=== PATIENT | female | born 1985 | race Caucasian/White ===

== ENCOUNTER 2024-10-02 19:49 | Emergency (ER) | payer MEDICAID, SELFPAY ==
[2024-10-02 19:49] VITALS: BMI 27.3
[2024-10-02 20:24] VITALS: BP 125/86; PULSE 81; RESP 18; TEMP 36.7; O2SAT 99
--- NOTE | 2024-10-02 20:34 | XR_ITS ---
Examination: Right elbow 3 views Technique: Elbow AP, oblique, lateral 3 views Exam date and time: October 02, [id number] hrs. Indications: Patient fell today with injury to the elbow, elbow pain. Findings: No acute fracture No dislocation No foreign body Impression: No acute fracture.
--- NOTE | 2024-10-02 20:34 | PD.EDUPEX ---
Upper Extremity Injury RME/HPI General Chief Complaint: Extremity Injury, Upper Stated Complaint: RIGHT ELBOW INJURY Time Seen by Provider: 10/02/24 20:34 Source: patient Arrival date/time: 10/02/24 19:49 39-year-old female presents emergency department complaining of right elbow pain after suffering fall from 2 steps above the ground with no LOC or injury to head or neck area. Mode of arrival: ambulatory Limitations: no limitations Related Data Previous Rx's ?Medication ?Instructions ?Recorded hydrocodone 5 mg-acetaminophen 300 1 tab PO Q8H PRN pain #30 tabs 07/25/20 mg tablet ibuprofen 100 mg tablet 400 mg (4 x 100 mg) PO Q6H PRN 07/25/20 pain #90 tabs ibuprofen 600 mg tablet 600 mg PO Q8H PRN pain #20 tabs 10/02/24 Allergies Allergy/AdvReac Type Severity Reaction Status Date / Time No Known Allergies Allergy Verified 07/25/20 10:13 Review of Systems Review of Systems Systems Reviewed: All systems reviewed, normal except as documented Constitutional Constitutional: Reports system reviewed and no additional complaints, except as documented, Denies body ache(s), Denies chills and Denies fever(s) Eyes Eyes: Reports system reviewed and no additional complaints, except as documented and Denies change in vision ENT Ears, Nose, Mouth, and Throat: Reports system reviewed and no additional complaints, except as documented, Denies disequilibrium, Denies dizziness, Denies sore throat and Denies vertigo Cardiovascular Cardiovascular: Reports system reviewed and no additional complaints, except as documented, Denies chest pain and Denies dyspnea Respiratory Respiratory: Reports system reviewed and no additional complaints, except as documented, Denies chest congestion, Denies cough and Denies dyspnea Gastrointestinal Gastrointestinal: Reports system reviewed and no additional complaints, except as documented, Denies abdominal pain, Denies nausea and Denies vomiting Musculoskeletal Musculoskeletal: Reports system reviewed and no additional complaints, except as documented, Denies abnormal gait and Reports arthralgias Integumentary/Breasts Skin/Breast: Reports system reviewed and no additional complaints, except as documented, Denies erythema, Denies rash and Denies wounds Neurologic Neurologic: Reports system reviewed and no additional complaints, except as documented, Denies abnormal gait, Denies disequilibrium, Denies dizziness and Denies vertigo Past Medical History Past Medical History NEUROLOGIC: Negative Neurological Disorders or Seizures CARDIAC: Negative Cardiac Disorders or Congestive Heart Failure RESPIRATORY: Negative Chronic Obstructive Pulmonary Disease (COPD) GASTROINTESTINAL: Negative Gastrointestinal Disorders or Hepatitis GENITOURINARY: Negative Genitourinary Disorders or Renal Disease REPRODUCTIVE: Positive Previous Pregnancies (X5) MUSCULOSKELETAL: Negative Musculoskeletal Disorders ENDOCRINE: Negative Endocrine Disorders, Diabetes Mellitus Type 1 or Diabetes Mellitus Type 2 HEMATOLOGIC: Negative Blood Disorders OTHER HISTORY: Positive Chicken Pox; Negative Autoimmune Disease, Falls, Blood Transfusions, Blood Transfusion Reaction, Anesthesia Reactions, MRSA or Cancer Family History FAMILY HISTORY: Negative Family Psychiatric Problems, Family Respiratory Disorders, Family Cardiac Disorders, Family Gastrointestinal Problems, Family Cancer, Family Surgery or Family Anesthesia Reaction Surgical History SURGICAL: Positive Open Reduction Internal Fixation (RIGHT ANKLE- HAS 1 SCREW); Negative Neurologic Surgery Social History SMOKING STATUS: Current every day smoker ED Exam General Limitations: Present no limitations General appearance: Present alert and in no apparent distress Head Head exam: Present atraumatic Eye Eye exam: Present normal appearance, PERRL and EOMI ENT ENT exam: Present normal exam, normal oropharynx and mucous membranes moist Neck Neck exam: Present normal inspection, full ROM and trachea midline Chest Chest inspection: Present normal inspection and symmetric chest wall rise Respiratory Respiratory exam: Present normal lung sounds bilaterally Cardiovascular Cardiovascular exam: Present regular rate, normal rhythm and normal heart sounds Abdominal Exam Abdominal exam: Present soft and normal bowel sounds Extremities Exam Extremities exam: Present normal inspection and full ROM Expanded Upper Extremity Exam Elbow exam: Present full ROM (Right elbow) and swelling (+1 right elbow) Back Exam Back exam: Present normal inspection and full ROM Neurological Exam Neurological exam: Present alert, oriented X3 and CN II-XII intact Psychiatric Psychiatric exam: Present normal affect and normal mood Skin Skin exam: Present warm, dry, intact and normal color Course Quality Measures none Orders Category Date Time Status XR elbow comp RT min 3V Stat Exams 10/02/24 20:34 Completed Vital Signs Vital signs: Vital Signs Temperature 98.1 F 10/02/24 20:24 Pulse Rate 81 10/02/24 20:24 Respiratory Rate 18 10/02/24 20:24 Blood Pressure 125/86 H 10/02/24 20:24 Pulse Oximetry (%) 99 10/02/24 20:24 Oxygen Delivery Method Room Air 10/02/24 20:24 99% room air normal limits Extremity Injury MDM Narrative MDM Narrative:: 39-year-old female presents emergency department complaining of right elbow pain after suffering fall from 2 steps above the ground with no LOC or injury to head or neck area. Patient's x-ray was negative for any acute fracture or dislocation. Patient is right elbow full active range of motion with some pain and some mild edema +1. Patient's right upper extremity is neurovascularly intact. Discharge instructed to follow-up with primary care provider and request repeat x-ray if symptoms persist. Patient data External records reviewed:: [facility] previous records Clinical information provided by:: patient Social determinants that could affect healthcare access:: none Patient has the following chronic illnesses:: See chart How is presenting disease/condition affected by chronic disease/condition?: uneffected by Evaluation data The following diagnostics were reviewed and interpreted by me:: radiology exam(s) Lab and/or radiology exams considered but not ordered:: Ordered Interpretation Summary: Interpreted by me Medications / Prescriptions Medications or Prescriptions considered but not ordered:: N/A Medication administrations:: N/A Consultations Consultation(s) initiated? (list below): No Diagnosis Upper Extremity Injury Differential Diagnosis: other (Elbow dislocation, elbow fracture, elbow contusion) Most likely diagnosis given after review of the tests above:: Contusion of right elbow Admission Indicated Admission indicated?: not indicated Admission Request Was there a request for admission?: No Disposition Plan Disposition Plan: Discharge Discharge Attestation Discharge Attestation: The patient and all family members were given an opportunity to ask questions and understood the discharge instructions. Discharge instructions specifically effects, indications for sooner follow up or return to the emergency department, and the expected course of current diagnosis. Patient condition: Stable Discharge Plan Plan Patient Disposition: HOME (Self Care) Disposition Comment: Stable Prescriptions/Referrals Prescriptions/Med Rec: New ibuprofen 600 mg tablet 600 mg PO Q8H PRN (Reason: pain) Qty: 20 0RF No Action ibuprofen 100 mg tablet 400 mg PO Q6H PRN (Reason: pain) Qty: 90 1RF hydrocodone-acetaminophen 5-300 mg tablet 1 tab PO Q8H MDD 6 PRN (Reason: pain) Qty: 30 0RF Referrals: Hector Aguiar MD [Primary Care Provider] - In 1 week Problem List Clinical Impression: Contusion of elbow Patient/Caregiver Discharge Instructions Discharge Activity: activity as tolerated Education Materials: Bruises (Contusions), ED Contusion, Elbow Additional Instructions: Take ibuprofen as needed for pain. Follow-up with primary care provider and have repeat x-ray of elbow if symptoms persist. Return to the emergency department for any worsening symptoms or as needed. Print Language: Faroese Stand Alone Forms: Becky Award Info., Work/School Release, Patient Portal Info Letter PA/[employer] BPM ARCHITECT Supervising Physician PA/[employer] ARCHITECT Supervising Physician: Dr. Ramirez
== END 2024-10-02 22:19 | disposition home or self-care (01) ==
PROVIDERS: Emergency Provider Emergency Medicine; PCP Family Medicine
DX: S50.01XA Contusion of right elbow, initial encounter (principal); W10.8XXA Fall (on) (from) other stairs and steps, initial encounter
CPT/HCPCS: 73080; 99283

== ENCOUNTER 2024-10-12 17:07 | Emergency (ER) | payer MEDICAID, SELFPAY ==
[2024-10-12 17:09] VITALS: BMI 26.2
[2024-10-12 17:16] VITALS: BP 125/86; PULSE 88; RESP 18; TEMP 36.6; O2SAT 100
[2024-10-12] MEDS: LIDOCAINE HCL 1% 20 ML VIAL INFL (17:35)
[2024-10-12] MEDS: IBUPROFEN TAB 600 MG TABLET PO (17:35)
[2024-10-12] MEDS: DIPHTH,PERTUSS(ACELL),TET VAC 0.5 ML VIAL IMi (17:36)
--- NOTE | 2024-10-12 17:46 | EDNOTE_ITS ---
ED Wound/Laceration-RME/HPI General Chief Complaint: Eye Problems Stated Complaint: laceration to left upper eyelid Time Seen by Provider: 10/12/24 17:17 Arrival date/time: 10/12/24 17:07 39-year-old female presents to the emergency department today stating she trip and fall injuring her left eyelid patient reports laceration Limitations: no limitations Related Data Previous Rx's ?Medication ?Instructions ?Recorded hydrocodone 5 mg-acetaminophen 300 1 tab PO Q8H PRN pain #30 tabs 07/25/20 mg tablet ibuprofen 100 mg tablet 400 mg (4 x 100 mg) PO Q6H PRN 07/25/20 pain #90 tabs ibuprofen 600 mg tablet 600 mg PO Q8H PRN pain #20 tabs 10/02/24 ibuprofen 600 mg tablet 600 mg PO Q6H #30 tabs 10/12/24 Allergies Allergy/AdvReac Type Severity Reaction Status Date / Time No Known Allergies Allergy Verified 07/25/20 10:13 Review of Systems Review of Systems Systems Reviewed: All systems reviewed, normal except as documented Constitutional Constitutional: Reports system reviewed and no additional complaints, except as documented, Denies fever(s) and Denies headache(s) Eyes Eyes: Reports system reviewed and no additional complaints, except as documented and Denies blurry vision ENT Ears, Nose, Mouth, and Throat: Reports system reviewed and no additional complaints, except as documented, Denies headache(s), Denies nasal congestion and Denies nasal discharge Cardiovascular Cardiovascular: Reports system reviewed and no additional complaints, except as documented, Denies chest pain and Denies dyspnea Respiratory Respiratory: Reports system reviewed and no additional complaints, except as documented, Denies chest congestion, Denies cough and Denies dyspnea Gastrointestinal Gastrointestinal: Reports system reviewed and no additional complaints, except as documented and Denies abdominal pain Integumentary/Breasts Skin/Breast: Reports system reviewed and no additional complaints, except as documented, Denies rash and Reports wounds (Laceration facial) Neurologic Neurologic: Reports system reviewed and no additional complaints, except as documented, Reports as per HPI and Denies headache(s) Past Medical History Past Medical History NEUROLOGIC: Negative Neurological Disorders CARDIAC: Negative Cardiac Disorders ED Exam General Limitations: Present no limitations General appearance: Present alert and in no apparent distress Head Head exam: Present atraumatic Eye Eye exam: Present normal appearance, PERRL and EOMI ENT ENT exam: Present normal exam, normal oropharynx and mucous membranes moist Neck Neck exam: Present normal inspection, full ROM and trachea midline Chest Chest inspection: Present normal inspection and symmetric chest wall rise Respiratory Respiratory exam: Present normal lung sounds bilaterally Cardiovascular Cardiovascular exam: Present regular rate, normal rhythm and normal heart sounds Abdominal Exam Abdominal exam: Present soft and normal bowel sounds Extremities Exam Extremities exam: Present normal inspection and full ROM Back Exam Back exam: Present normal inspection and full ROM Neurological Exam Neurological exam: Present alert, oriented X3, CN II-XII intact, normal gait and reflexes normal; Absent motor sensory deficit Psychiatric Psychiatric exam: Present normal affect and normal mood Skin Skin exam: Present warm, dry and other (Facial laceration) Course Quality Measures none Orders Category Date Time Status Set Up Suture Tray STAT Care 10/12/24 17:28 Completed Wound Care NOW Care 10/12/24 17:28 Completed Ibuprofen Tab [Motrin Tab] Med 10/12/24 17:28 Discontinued 600 mg PO X1 ONE Lidocaine 1% 20 ml [Xylocaine 1% 20 ML] Med 10/12/24 17:28 Discontinued 20 ml INFL X1 ONE Tet,Diphth,Pertuss(Acell)-Tdap [Boostrix Vacc] Med 10/12/24 17:28 Discontinued 0.5 ml IMI .ONCE ONE Vital Signs Vital signs: Vital Signs Temperature 98 F 10/12/24 17:16 Pulse Rate 88 10/12/24 17:16 Respiratory Rate 18 10/12/24 17:16 Blood Pressure 125/86 H 10/12/24 17:16 Pulse Oximetry (%) 100 10/12/24 17:16 Oxygen Delivery Method Room Air 10/12/24 17:16 O2 saturation 100% room air with normal limits Procedures -ED Laceration Laceration 1: Site: face Side (If applicable): left Size (cm): 3 Description: linear Depth: simple, single layer Local Anesthetic: lidocaine 1% Amount of anesthesia used (mL): 4 Pre-repair: wound explored Skin layer closed with: nylon Size (cm): 5-0 Number of sutures: 4 Technique: simple, interrupted Wound / Laceration MDM Narrative MDM Narrative:: 39-year-old female presents to the emergency department today stating she trip and fall injuring her left eyelid patient reports laceration On exam patient is laceration facial approximately 3 cm Laceration irrigated copiously laceration repaired with 4 sutures wound is well- approximated no active bleeding at time of discharge Patient ports no headache no dizziness no weakness patient walks with steady gait Patient discharged home in no distress to follow-up with primary care doctor in the next 24 to 48 hours and for any worsening symptoms to return to the ER immediately Patient data External records reviewed:: [facility] previous records Clinical information provided by:: patient Social determinants that could affect healthcare access:: none Patient has the following chronic illnesses:: None How is presenting disease/condition affected by chronic disease/condition?: no chronic disease Evaluation data The following diagnostics were reviewed and interpreted by me:: other (specify) (N/A) Lab and/or radiology exams considered but not ordered:: Consider not ordered Interpretation Summary: N/A Medications / Prescriptions Medications or Prescriptions considered but not ordered:: Given Medication administrations:: Medication Administration History Discontinued Medications Diphtheria/Tetanus/Acell Pertussis (Diphth,Pertuss(Acell),Tet Vac 0.5 Ml Vial) 0.5 ml IMi .ONCE ONE Stop: 10/12/24 17:29 Last Admin: 10/12/24 17:36 Dose: 0.5 ml Documented By: OA Ibuprofen (Ibuprofen Tab 600 Mg Tablet) 600 mg PO X1 ONE Stop: 10/12/24 17:29 Last Admin: 10/12/24 17:35 Dose: 600 mg Documented By: OA Lidocaine HCl (Lidocaine Hcl 1% 20 Ml Vial) 20 ml INFL X1 ONE Stop: 10/12/24 17:29 Last Admin: 10/12/24 17:35 Dose: 20 ml Documented By: OA Given Consultations Consultation(s) initiated? (list below): No Diagnosis Wound Differential Diagnosis: laceration, abscess, abrasion and avulsion of skin Most likely diagnosis given after review of the tests above:: Laceration Admission Indicated Admission indicated?: not indicated Admission Request Was there a request for admission?: No Disposition Plan Disposition Plan: Discharge Discharge Attestation Discharge Attestation: The patient and all family members were given an opportunity to ask questions and understood the discharge instructions. Discharge instructions specifically effects, indications for sooner follow up or return to the emergency department, and the expected course of current diagnosis. Patient condition: Stable Discharge Plan Plan Patient Disposition: HOME (Self Care) Disposition Comment: Stable Prescriptions/Referrals Prescriptions/Med Rec: New ibuprofen 600 mg tablet 600 mg PO Q6H Qty: 30 0RF No Action ibuprofen 100 mg tablet 400 mg PO Q6H PRN (Reason: pain) Qty: 90 1RF hydrocodone-acetaminophen 5-300 mg tablet 1 tab PO Q8H MDD 6 PRN (Reason: pain) Qty: 30 0RF ibuprofen 600 mg tablet 600 mg PO Q8H PRN (Reason: pain) Qty: 20 0RF Referrals: Hector Aguiar MD [Primary Care Provider] - 10/13/24 Problem List Clinical Impression: Facial laceration Patient/Caregiver Discharge Instructions Education Materials: ED Laceration: All Closures Additional Instructions: Please follow up with your primary care doctor in the next 24-48hrs for any worsening symptoms return here immediately Please have sutures removed in 7 days Print Language: Barbadian Stand Alone Forms: Becky Award Info., Work/School Release, Patient Portal Info Letter Vaccines Vaccines Given During Stay: TDaP PA/INSURANCE VERIFICATION REP Supervising Physician PA/INSURANCE VERIFICATION REP Supervising Physician: Dr lopez
== END 2024-10-12 18:09 | disposition home or self-care (01) ==
PROVIDERS: Emergency Provider Emergency Medicine; PCP Family Medicine
DX: S01.81XA Laceration without foreign body of other part of head, initial encounter (principal); W01.0XXA Fall on same level from slipping, tripping and stumbling without subsequent striking against object, initial encounter; Z23 Encounter for immunization
CPT/HCPCS: 12013; 90471; 90715; 99283; J3490; A9270

== ENCOUNTER 2025-08-31 09:50 | Outpatient (RCR) | payer MEDICAID, SELFPAY ==
--- NOTE | 2025-08-31 11:15 | PT.OIERPT ---
PT OP Initial Eval Patient Information Outpatient Physical Therapy Treatment Date: 08/31/25 Visit Reasons: Lateral Epicondylitis RT Elbow Medical Diagnosis: M77.11 Treatment Dx #1: Right Elbow Mobility Deficits Treatment Dx #2: Right Elbow Pain Start of Care: 08/31/25 Date of Onset: 3 months ago Smoking Status Smoking Status: Never smoker Initial Assessment Subjective: Pt is a 40 y/o female reports of right elbow pain (7/10) worsening in the past 3 months. 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 Due to patient Pt has difficulty with lifting, gripping, chores, self care, cooking, cleaning, and performing recreational activities. Objective: Right Elbow AROM: all motions are WFL with pain Right Elbow MMTs: grossly 4-/5 Right Wrist AROM: all motions are WFL Right Wrist MMTs: grossly 4-/5 Area Counselor Strength L: 60 lbs R: 59 lbs Special Test (+) Erickson (+) cozen Palpation: TTP extensor complex tendon Assessment: Pt demonstrate right elbow pain consistent with tennis elbow leading to difficulty with ADLs. Pt will benefit from physical therapy to increase mobility, strength, and decrease pain. Short Term and Ict Business Development Manager Goals 1) Increase right elbow AROM WNL in 6 wks to be able to perform chores 2) Increase right wrist MMTs grossly to 4/5 in 6 wks to be able to perform lifting activities 3) Decrease elbow pain to 2/10 in 6 wks to be able to perform recreational activities 4) Indep with HEP Treatment Plan 1) Manual Therapy 2) Therapeutic Activities 3) Therapeutic Exercises 4) Modalities (ice, heat) Frequency and Duration: 2 x wk for 6 wks Certification Dates: 08/31/25 to 12/01/25 Procedure Charges OP PT Eval Mod Complex 30 minutes: Yes
== END 2025-09-24 23:59 | disposition home or self-care (01) ==
LOC: CPTX 09:50
PROVIDERS: PCP Family Medicine; Referring Provider Family Medicine; Visit Provider Family Medicine
DX: M25.521 Pain in right elbow (principal); M77.11 Lateral epicondylitis, right elbow
CPT/HCPCS: 97162

== ENCOUNTER 2025-10-13 10:00 | Outpatient (RCR) | payer MEDICAID, SELFPAY ==
--- NOTE | 2025-10-03 09:57 | PT.ODAYNRPT ---
PT Outpatient Daily Note OP Daily Note Outpatient Physical Therapy Treatment Date: 10/03/25 Visit Reasons: Lateral epicondylitis rt elbow Subjective: Pt's elbow feels about the same. Pt mentioned she is unable to keep her elbow straight . Pt has not been wearing the compression brace consistently because it doesn't help . Objective: Please see flow chart for list of ther ex performed Assessment: difficulty tolerating STM due to pain. Pt encourage to wear compression brace more consistently to decrease pressure on the extensor complex tendon. Pt gave verbal understanding Plan: Continue with PT Length of Time (minutes) of Treatment: 30 Minutes Procedure Charges Therapeutic Exercise 15 minutes: Yes Manual Plastic Battery Assembler 15 minutes: Yes
--- NOTE | 2025-10-13 10:14 | PT.ODAYNRPT ---
PT Outpatient Daily Note OP Daily Note Outpatient Physical Therapy Treatment Date: 10/13/25 Visit Reasons: Lateral epicondylitis rt elbow Subjective: Pt's elbow pain is about the same. Pt notice her elbow is getting more tight and unable to fully extend. Objective: Please see flow chart for list of ther ex performed Assessment: exhibit elbow flexion contracture leading to difficulty to achieve full extension AROM. Minimal changes in elbow post PT session Plan: Continue with PT Length of Time (minutes) of Treatment: 30 Minutes Procedure Charges Therapeutic Exercise 30 minutes: Yes
--- NOTE | 2025-11-10 08:48 | PT.ODS1RPT ---
PT OP Progress/Discharge Note Date of Service: 11/10/25 Progress Note/DC Note Progress Note/Discharge Note: DC Note Patient Information Visit Reasons: Lateral epicondylitis rt elbow Service Discharge Date: 11/10/25 Status Assessment: Pt has been seen for 3 visits (eval + 2 visits). Pt no showed 09/07 and 10/18 appt. Pt has been contact regarding physical therapy without success. At this time Pt will be d/c from care due to non-compliance per attendance policy. Pt did not meet set goals in therapy; thank you for your referrals
== END 2025-10-25 23:59 | disposition home or self-care (01) ==
LOC: CPTX 10:00
PROVIDERS: PCP Family Medicine; Referring Provider Family Medicine; Visit Provider Family Medicine
DX: M25.521 Pain in right elbow (principal); M77.11 Lateral epicondylitis, right elbow
CPT/HCPCS: 97110; 97140